=== PATIENT | male | born 1945 | race Caucasian/White ===

== ENCOUNTER → 2016-11-06 | Outpatient (CLI) | payer OTHER ==
[2016-11-06 11:04] LABS: BASOPHILS # (AUTO) 0.02 10*3/UL; BASOPHILS % (AUTO) 0.4 % (0-1); EOSINOPHILS # (AUTO) 0.13 10*3/UL; EOSINOPHILS % (AUTO) 2.9 % (0-8); HEMOGLOBIN 15.7 g/dL (14.0-18.0); LYMPHOCYTES # (AUTO) 1.63 10*3/uL; MEAN CORPUSCULAR HEMOGLOBIN 29.6 PG (27-31); MEAN CORPUSCULAR HGB CONC 34.9 g/dL (33-37); MEAN CORPUSCULAR VOLUME 84.7 FL (80-90); MEAN PLATELET VOLUME 10.7 FL (7.4-12.2); MONOCYTES # (AUTO) 0.29 10*3/UL (0.3-0.8); MONOCYTES % (AUTO) 6.4 % (5-15); NEUTROPHILS # (AUTO) 2.47 10*3/UL; NEUTROPHILS % (AUTO) 54.4 % (50-80); RED BLOOD COUNT 5.31 10^6/uL (4.70-6.10)
[2016-11-06 12:10] LABS: HEMOGLOBIN A1C 5.23 % (4.2-6.0)
[2016-11-06 12:20] LABS: FREE T4 (FREE THYROXINE) 1.08 ng/dL (0.93-1.71)
[2016-11-06 12:20] LABS: PLATELET MORPHOLOGY COMMENT NORMAL MORPHOLOGY (NORM); RBC MORPHOLOGY COMMENT NORMAL MORPHOLOGY (NORM); WBC MORPHOLOGY COMMENT NORMAL MORPHOLOGY (NORM)
[2016-11-06 12:36] LABS: CHOL/HDL RATIO 4.02 RATIO (0-4.0); LDL CHOLESTEROL,CALCULATED 118.6 mg/dL
[2016-11-06 12:37] LABS: BUN/CREATININE RATIO 17.5 (6-20); CALCIUM 9.8 mg/dL (8.7-10.7); SERUM ALBUMIN 4.4 g/dL (3.5-4.8)
[2016-11-06 13:15] LABS: VITAMIN D 25-HYDROXY 42.7 NG/ML (30-100)
== END ==
LOC: MOB LAB 10:06
PROVIDERS: ATTEND Family Medicine
DX: R73.09 Other abnormal glucose (principal); E03.9 Hypothyroidism, unspecified; K21.9 Gastro-esophageal reflux disease without esophagitis; E55.9 Vitamin D deficiency, unspecified; N40.0 Benign prostatic hyperplasia without lower urinary tract symptoms; Z12.5 Encounter for screening for malignant neoplasm of prostate
CPT/HCPCS: 36415; 80053; 80061; 82306; 83036; 84439; 84443; 85025; G0103; G0439; G0463

== ENCOUNTER → 2016-12-11 | Outpatient (CLI) | payer OTHER | LOC: MMPC 11:11 | PROVIDERS: ATTEND Surgery | DX: N40.0 Benign prostatic hyperplasia without lower urinary tract symptoms (principal) | CPT/HCPCS: 99212; G0463 ==

== ENCOUNTER 2016-12-15 07:56 | Day surgery (SDC) | payer OTHER ==
[~2016-12-15 07:56] MED LIST: LIDOCAINE W/ SODIUM BICARB 0.5 ML SYR ONE; Lactated Ringers 1,000 ML PRIMARY IV ONE; MIDAZOLAM 5 MG/1 ML ONE; fentaNYL Inj 100 MCG/2 ML VIAL ONE
--- NOTE | 2016-12-15 09:02 | GEN.OPNOTE ---
Colonoscopy Procedure Note Surgery Date: 12/15/16 Preoperative Diagnosis: Colon cancer screening Postoperative Diagnosis: Colon cancer screening ; diverticulosis Procedure: Colonoscopy Surgeon: Dioni Miner MD Anesthesia Provider: Hari Jimenez CRNA Anesthesia Type: MAC Findings: Prep : Very good Cecum : Scope advanced all way to the cecum and ileocecal valve identified. Patient had a normal appearing cecum Ascending : Ascending colon was within normal limits Transverse : Transverse colon had no polyps tumors or cancers Sigmoid : Descending colon free from disease sigmoid had diverticulosis Rectum : Rectum free from disease Digital Rectal Exam : No rectal masses prostate smooth A lubricated flexible colonoscope was inserted and passed to the blind end of the cecum.
[2016-12-15 11:34] VITALS: RESP 18
[2016-12-15 11:41] VITALS: TEMP 97.2
== END 2016-12-15 11:06 | disposition home or self-care (01) ==
LOC: SDSC 07:56
PROVIDERS: ATTEND Surgery
DX: Z12.11 Encounter for screening for malignant neoplasm of colon (principal); K57.90 Diverticulosis of intestine, part unspecified, without perforation or abscess without bleeding
CPT/HCPCS: 45378; J2250; J2704; J3010; J7120